=== PATIENT | male | born 1965 | race Caucasian/White ===

== ENCOUNTER → 2024-05-19 11:20 | Outpatient (BNVA) | payer OTHER, SELFPAY | PROVIDERS: PCP Nurse Practitioner Family; Referring Provider Nurse Practitioner Family; Visit Provider Surgery | DX: Z12.11 Encounter for screening for malignant neoplasm of colon (principal) | CPT/HCPCS: 99204 ==

== ENCOUNTER → 2024-06-01 11:04 | Outpatient (BNVA) | payer OTHER, SELFPAY | PROVIDERS: PCP Nurse Practitioner Family; Visit Provider Nurse Practitioner | DX: M67.432 Ganglion, left wrist (principal); M25.532 Pain in left wrist | CPT/HCPCS: 73110; 99204 ==

== ENCOUNTER 2024-07-30 05:58 | Day surgery (SDC) | payer OTHER, SELFPAY ==
[2024-07-30 06:14] VITALS: BP 132/89; PULSE 60; RESP 18; TEMP 36.3; O2SAT 98
[2024-07-30 06:15] VITALS: BMI 31.5
--- NOTE | 2024-07-30 06:17 | W.PM.OPSFHP ---
Same Day Surgery H&P Indication for Procedure/HPI DATE OF PROCEDURE: July 30, 2024 CHIEF COMPLAINT/INDICATIONFOR SURGICAL PROCEDURE: need for screening colonoscopy PREOP DIAGNOSIS: need for screening colonoscopy PLANNED PROCEDURE: Operation Date: 07/30/24 07:00 Proposed Procedures p Colonoscopy [id number] [id number] Z12.11(Not Applicable) - Herminio Garcia MD Medications/Allergies* Home Medications ?Medication ?Instructions ?Recorded ?Confirmed ?Type No Known Home Medications 05/19/24 07/28/24 History Allergies/Adverse Reactions Allergy/AdvReac Type Severity Reaction Status Date / Time No Known Allergies Allergy Unverified 07/28/24 08:30 Pertinent History/Comorbid Conditions* Social History Smoking and tobacco/nicotine status: never used tobacco/nicotine Pertinent Exam Findings alert, oriented x 3, clear to auscultation bilaterally, regular rate & rhythm and procedure specific exam findings Recommendations Surgery/Procedure today Coding Level of Care Code Acute Code for Chg Fwraquel
[2024-07-30] MEDS: sodium chloride 0.9% 1,000 ML 15 ML IV (06:25)
--- NOTE | 2024-07-30 06:50 | ANES.PREANE2 ---
Pre-Anesthetic Assessment Height/Weight: Height 1.78 m Weight 99.79 kg Temp Pulse Resp BP Pulse Ox O2 Del Method 97.3 F L 60 18 132/89 98 Room Air 07/30/24 06:14 07/30/24 06:14 07/30/24 06:14 07/30/24 06:14 07/30/24 06:14 07/30/24 06:14 Preop Diagnosis: need for screening colonoscopy Operation Date: 07/30/24 07:00 Proposed Procedures p Colonoscopy 80903 [id number] Z12.11(Not Applicable) - Herminio Garcia MD Familial anesthetic complications: none Was Beta Meg taken within 24 hours: N/A Was Clonidine taken within 24 hours: N/A Last intake: Intake Last Liquid Date 07/29/24 Last Liquid Time 23:54 Last Solid Date 07/28/24 Last Solid Time 21:00 Social Alcohol and Tobacco nicotine pouches, marijuana gummies pack(s) per day 6 beers nightly Exam alert, oriented x 3, clear to auscultation bilaterally and regular rate & rhythm Airway Submandibular: within normal limits Cervical ROM: within normal limits Mallampati: Class II Dentition: full History/ROS No significant history except as noted and No significant complaints Pulmonary None reported CV/HEM None reported None reported Hepatic None reported GI None reported Metabolic None reported Musc/skel None reported Neuropsych Anxiety and Depression Anesthetic Plan ASA status: 2 Risk of > 500 ml blood loss (7ml/kg in children): No Medications/Allergies Home Medications ?Medication ?Instructions ?Recorded ?Confirmed ?Last Taken ?Type No Known Home Medications 05/19/24 07/28/24 Unknown History Allergies Allergy/AdvReac Type Severity Reaction Status Date / Time No Known Allergies Allergy Unverified 07/28/24 08:30 Current Medications Generic Name Dose Route Start Last Admin Trade Name Freq PRN Reason Stop Dose Admin Sodium Chloride 1,000 mls @ 15 mls/hr 07/30/24 06:03 07/30/24 06:25 Sodium Chloride 0.9% IV 07/31/24 06:02 15 mls/hr .Q24H PRN Administration COLONOSCOPY FLUIDS PFSH Anesthesia Social History Smoking and tobacco/nicotine status: never used tobacco/nicotine Data Anesthesia Cardiac Studies: No Data to Display
[2024-07-30 07:32] VITALS: BP 85/60; PULSE 62; RESP 18; TEMP 36.1; O2SAT 96
[2024-07-30 07:44] VITALS: BP 109/59; PULSE 59; RESP 18; O2SAT 100
[2024-07-30 07:52] VITALS: BP 119/74; PULSE 59; RESP 18; O2SAT 100
[2024-07-30 08:12] VITALS: BP 120/68; PULSE 60; RESP 18; O2SAT 100
--- NOTE | 2024-07-30 08:20 | ANE.PACU2 ---
Inpatient post-anesthesia follow up: Airway intact: Yes Vital signs: Temperature 97.0 F Pulse Rate 60 Respiratory Rate 18 Blood Pressure 120/68 Pulse Oximetry 100 Oxygen Delivery Me thod Room Air Oxygen Flow Rate Fraction of Inspir ed Oxygen Hydration adequate: Yes Nausea and vomiting: No Pain level: 1 Mental status: Baseline
== END 2024-07-30 08:20 | disposition home or self-care (01) ==
PROVIDERS: PCP Nurse Practitioner Family; Visit Provider Surgery
PROC: 0DJD8ZZ Inspection of Lower Intestinal Tract, Via Natural or Artificial Opening Endoscopic (ICD-10-PCS; CPT 45378; principal; 2024-07-30 07:00)
DX: Z12.11 Encounter for screening for malignant neoplasm of colon (principal); D12.3 Benign neoplasm of transverse colon; K57.30 Diverticulosis of large intestine without perforation or abscess without bleeding
CPT/HCPCS: 45385; 88305; J2704; J7030

== ENCOUNTER → 2024-08-25 09:32 | Outpatient (BNVA) | payer OTHER, SELFPAY | PROVIDERS: PCP Nurse Practitioner Family; Visit Provider Surgery | DX: Z09 Encounter for follow-up examination after completed treatment for conditions other than malignant neoplasm (principal) | CPT/HCPCS: 99213 ==

== ENCOUNTER 2024-09-21 08:29 | Outpatient (CLI) | payer OTHER, SELFPAY ==
--- NOTE | 2024-09-21 08:32 | MR_ITS ---
WS: [id number] MRI RIGHT HAND WITHOUT CONTRAST. COMPARISON: None Multiplanar, multisequence imaging is performed without contrast. No fractures or marrow edema. Attention paid to the base of the third finger. There is mild narrowing of the third metacarpophalangeal joint with a small cyst in the third metacarpal head. The nigel system appears intact. The radial and ulnar collateral ligaments are normal. No malalignment. There is soft tissue edema closely associated with the ulnar collateral ligament at the third metacarpal phalangeal joint. There is at least a partial tear. No fluid collection. No additional abnormalities. MR/MR hand RT wo con* [id number] IMPRESSION: 1. Partial tear of the ulnar collateral ligament at the third metacarpal phala ngeal joint. 2. No fractures. 3. Very mild degenerative changes at the third metacarpophalangeal joint.
== END 2024-09-21 08:30 | disposition home or self-care (01) ==
PROVIDERS: PCP Nurse Practitioner Family; Visit Provider Nurse Practitioner Family
DX: M19.041 Primary osteoarthritis, right hand (principal); S63.612A Unspecified sprain of right middle finger, initial encounter; X58.XXXA Exposure to other specified factors, initial encounter
CPT/HCPCS: 73218

== ENCOUNTER → 2024-11-16 09:04 | Outpatient (BNVA) | payer OTHER, SELFPAY | PROVIDERS: PCP Nurse Practitioner Family; Visit Provider Nurse Practitioner | DX: M19.041 Primary osteoarthritis, right hand (principal); M06.4 Inflammatory polyarthropathy | CPT/HCPCS: 36415; 73130; 80053; 84550; 85025; 85651; 86140; 86200; 86225; 86235; 86431; 99214 ==

== ENCOUNTER → 2024-11-27 08:52 | Outpatient (BNVA) | payer OTHER, SELFPAY | PROVIDERS: PCP Nurse Practitioner Family; Visit Provider Nurse Practitioner | DX: M25.561 Pain in right knee (principal); M25.532 Pain in left wrist; M65.4 Radial styloid tenosynovitis [de Quervain]; M17.11 Unilateral primary osteoarthritis, right knee; M25.361 Other instability, right knee; M79.89 Other specified soft tissue disorders; Z46.89 Encounter for fitting and adjustment of other specified devices | CPT/HCPCS: 73130; 73560; 73565 ==

== ENCOUNTER 2024-11-27 10:23 | Outpatient (CLI) | payer OTHER, SELFPAY | END 2024-11-27 10:24 | disposition home or self-care (01) | LOC: SOT 10:24 | PROVIDERS: PCP Nurse Practitioner Family; Visit Provider Nurse Practitioner | DX: Z46.89 Encounter for fitting and adjustment of other specified devices (principal); M79.642 Pain in left hand | CPT/HCPCS: 97760; L3807 ==

== ENCOUNTER 2024-12-02 08:59 | Outpatient (RCR) | payer OTHER, SELFPAY | END 2024-12-20 23:59 | disposition home or self-care (01) | LOC: SOT 08:59 | PROVIDERS: Visit Provider Nurse Practitioner | DX: S63.659A Sprain of metacarpophalangeal joint of unspecified finger, initial encounter (principal); X58.XXXA Exposure to other specified factors, initial encounter | CPT/HCPCS: 97110; 97165; G0283 ==

== ENCOUNTER 2024-12-02 14:28 | Outpatient (CLI) | payer OTHER, SELFPAY ==
--- NOTE | 2024-12-02 14:30 | MR_ITS ---
WS: [id number] MRI RIGHT KNEE HISTORY: right knee pain, instability and swelling COMPARISON: 11/27/2024 radiographs Anterior cruciate ligament: Intact. Posterior cruciate ligament: Intact. Medial collateral ligament: Well-circumscribed soft tissue mass inseparable from the medial collateral ligament. Intermediate signal mass is well-circumscribed measuring 2.2 x 1.0 cm. There is a small amount of adjacent edema. Posterior lateral corner structures: Intact. Medial menisci: Intact. Normal signal, size and shape. Lateral meniscus: Intact. Normal signal, size and shape. Extensor mechanism: Distal quadriceps tendon and patellar tendons are intact. Fluid and soft tissue: Small suprapatellar joint effusion. No Murphy's cyst. Osseous and articular structures: Patellofemoral compartment: Normal. Medial compartment: Mild narrowing of the medial compartment. Thinning and fissuring of the cartilage. There is several near full-thickness defects along the weightbearing surface of the medial femoral condyle. No underlying marrow edema. Lateral compartment: Mild narrowing of the lateral compartment with mild chondromalacia. Greatest to mild chondromalacia is along the mid lateral tibial plateau with full-thickness defects but no underlying marrow edema. MR/MR knee RT wo con* [id number] IMPRESSION: 1. Well-circumscribed soft tissue mass inseparable from the medial collateral ligament measures 2.2 x 1.0 cm. This is likely related to bursitis associated t he medial collateral ligament. Differential would include a meniscal or synovia l cyst but no tract is identified extending to the knee joint. 2. No meniscal tear. 3. No ACL tear. 4. Mild narrowing of the medial and lateral compartments. 5. Small near full-thickness cartilage defect weightbearing surface medial fem oral condyle. 6. 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
== END 2024-12-02 14:29 | disposition home or self-care (01) ==
LOC: RAD 14:29
PROVIDERS: Visit Provider Nurse Practitioner
DX: M25.561 Pain in right knee (principal); M25.361 Other instability, right knee; M25.861 Other specified joint disorders, right knee; M17.11 Unilateral primary osteoarthritis, right knee; M17.31 Unilateral post-traumatic osteoarthritis, right knee; M94.261 Chondromalacia, right knee
CPT/HCPCS: 73721

== ENCOUNTER 2024-12-04 09:27 | Outpatient (CLI) | payer OTHER, SELFPAY ==
--- NOTE | 2024-12-04 09:30 | MR_ITS ---
WS: [id number] MRI LEFT HAND WITHOUT CONTRAST. COMPARISON: Radiograph 11/27/2024 Multiplanar, multisequence imaging is performed without contrast. There is a small erosion versus subchondral cyst measuring 2.8 mm in the articular surface second metacarpal head. There is an additional erosion or cyst measuring 4.3 mm in the lateral third metacarpal head. Third metacarpal head abnormality is extra-articular. There is mild narrowing of the second and third metacarpal phalangeal joints. Small amount of edema in the proximal second phalanx. No additional fractures are identified. Very minimal subluxation at the first carpometacarpal joint. MR/MR hand LT wo con* [id number] IMPRESSION: 1. Small subchondral cysts versus erosions in the second and third metacarpal heads. There is also mild narrowing of the second and third metacarpal phalange al joints. No fracture. Not a typical distribution for rheumatoid. Also prior M RI of the RIGHT hand on 09/21/2024 did not demonstrate erosions in the metacarpal heads. Therefore favor this may be osteoarthritis and subchondral cysts. Evalu ation by rheumatology may be beneficial. 2. No subluxations.
== END 2024-12-04 09:28 | disposition home or self-care (01) ==
LOC: RAD 09:28
PROVIDERS: PCP Family Medicine; Visit Provider Nurse Practitioner
DX: M79.642 Pain in left hand (principal); M85.642 Other cyst of bone, left hand
CPT/HCPCS: 73218

== ENCOUNTER 2024-12-21 06:30 | Outpatient (RCR) | payer OTHER, SELFPAY | END 2025-01-19 23:59 | disposition home or self-care (01) | LOC: SOT 06:30 | PROVIDERS: PCP Family Medicine; Visit Provider Nurse Practitioner | DX: S63.659A Sprain of metacarpophalangeal joint of unspecified finger, initial encounter (principal); M19.041 Primary osteoarthritis, right hand; X58.XXXA Exposure to other specified factors, initial encounter | CPT/HCPCS: 97022; 97110; 97140 ==

== ENCOUNTER → 2024-12-31 11:49 | Outpatient (BNVA) | payer OTHER, SELFPAY | PROVIDERS: PCP Family Medicine; Referring Provider Nurse Practitioner; Visit Provider Specialist | DX: R20.2 Paresthesia of skin (principal); R20.0 Anesthesia of skin | CPT/HCPCS: 95911 ==

== ENCOUNTER → 2025-01-11 09:25 | Outpatient (BNVA) | payer OTHER, SELFPAY | PROVIDERS: PCP Family Medicine; Visit Provider Nurse Practitioner | DX: M19.042 Primary osteoarthritis, left hand (principal); M94.261 Chondromalacia, right knee; M65.4 Radial styloid tenosynovitis [de Quervain]; M17.11 Unilateral primary osteoarthritis, right knee | CPT/HCPCS: 99214 ==

== ENCOUNTER → 2025-02-05 09:49 | Outpatient (BNVA) | payer OTHER, SELFPAY | PROVIDERS: PCP Family Medicine; Visit Provider Nurse Practitioner | DX: M17.11 Unilateral primary osteoarthritis, right knee (principal); M94.261 Chondromalacia, right knee; G89.29 Other chronic pain | CPT/HCPCS: 20610; 99213; J1100; J2795; J3301; J9999 ==

== ENCOUNTER → 2025-04-08 08:11 | Outpatient (BNVA) | payer OTHER, SELFPAY | PROVIDERS: PCP Family Medicine; Visit Provider Dermatology | DX: D48.5 Neoplasm of uncertain behavior of skin (principal); L71.9 Rosacea, unspecified; D22.5 Melanocytic nevi of trunk | CPT/HCPCS: 11102; 99203 ==